=== PATIENT | male | born 1985 | race Caucasian/White ===

== ENCOUNTER 2019-03-12 13:56 | Emergency (ER) | payer OTHER ==
[2019-03-12 15:49] VITALS: BP 144/85
--- NOTE | 2019-03-12 16:03 | UC ---
General HPI - HPI Summary HPI Summary: swelling around L great toenail for 3-4days. hx same from infection on other foot. - History of Current Complaint Chief Complaint: UCLowerExtremity Stated Complaint: LEFT GREAT TOE COMPLAINT Time Seen by Provider: 03/12/19 15:55 Hx Obtained From: Patient Onset/Duration: Gradual Onset Pain Intensity: 4 Associated Signs & Symptoms: Negative: Fever - Allergy/Home Medications Allergies/Adverse Reactions: Allergies Allergy/AdvReac Type Severity Reaction Status Date / Time phenobarbital Allergy Rash Verified 03/12/19 15:42 Home Medications: Home Medications Albuterol HFA INHALER* [Ventolin HFA Inhaler*] 2 puff INH Q4H PRN 03/12/19 [ History Confirmed 03/12/19] Loratadine [Claritin] 10 mg PO DAILY 03/12/19 [History Confirmed 03/12/19] PMH/Surg Hx/FS Hx/Imm Hx Previously Healthy: Yes - Family History Known Family History: Positive: Non-Contributory - Social History Lives: With Family Alcohol Use: None Substance Use Type: None Smoking Status (MU): Never Smoked Tobacco Household Exposure Type: Cigarettes Review of Systems All Other Systems Reviewed And Are Negative: No Constitutional: Negative: Fever, Chills Musculoskeletal: Negative: Arthralgia, Decreased ROM Neurological: Negative: Weakness, Paresthesia, Numbness Physical Exam Triage Information Reviewed: Yes Appearance: Well-Appearing Vital Signs: Initial Vital Signs Temp 99.1 F 03/12/19 15:43 Pulse 98 03/12/19 15:43 Resp 15 03/12/19 15:43 BP 144/85 03/12/19 15:43 Pulse Ox 97 03/12/19 15:43 Vital Signs Reviewed: Yes Eyes: Positive: Conjunctiva Clear Neck: Positive: Supple Respiratory: Positive: No respiratory distress Cardiovascular: Positive: RRR Musculoskeletal: Positive: Other: - L foot: mild swelling around nail but not fluctuant. rest of foot unremarkable. s/v/m is intact. Neurological: Positive: Alert Psychological: Positive: Age Appropriate Behavior Skin Exam: Normal Course/Dx - Differential Dx - Multi-Symptom Differential Diagnoses: Other - c/w paronychia that would not benefit from I&D at this time. - Diagnoses Provider Diagnosis: Paronychia of great toe of left foot Discharge - Sign-Out/Discharge Documenting (check all that apply): Patient Departure All imaging exams completed and their final reports reviewed: No Studies - Discharge Plan Condition: Stable Disposition: HOME Prescriptions: Cephalexin CAP* [Keflex CAP*] 500 mg PO TID 10 Days #30 cap Patient Education Materials: Jeremy (ED) Referrals: Sonu Parker DPM [Doctor of Podiatric Medicine] - As Soon As Possible - Billing Disposition and Condition Condition: STABLE Disposition: Home
== END 2019-03-12 16:10 | disposition home or self-care (01) ==
LOC: UCCORT 13:56
DX: L03.032 Cellulitis of left toe (principal); Z88.8 Allergy status to other drugs, medicaments and biological substances
CPT/HCPCS: 99202; G0463

== ENCOUNTER 2019-05-29 10:41 | Emergency (ER) | payer OTHER ==
[2019-05-29 11:04] VITALS: BP 122/74
--- NOTE | 2019-05-29 11:23 | UC ---
Respiratory Complaint HPI - HPI Summary HPI Summary: cough x 10 days cough is dry , worse with deep breathing , better with rest and fluid + nasal congestion , pnd , no sore throat, no fever, no chills - History of Current Complaint Chief Complaint: UCGeneralIllness Stated Complaint: COUGH/SINUSES Time Seen by Provider: 05/29/19 11:06 Hx Obtained From: Patient Onset/Duration: Gradual Onset, Lasting Days - 10, Still Present Timing: Constant Severity Initially: Moderate Severity Currently: Moderate Pain Intensity: 0 Character: Cough: Nonproductive Aggravating Factors: Exertion, Deep Breaths Alleviating Factors: Nothing Associated Signs And Symptoms: Positive: Wheezing, URI, Nasal Congestion. Negative: Dyspnea, Fever, Chills - Allergies/Home Medications Allergies/Adverse Reactions: Allergies Allergy/AdvReac Type Severity Reaction Status Date / Time phenobarbital Allergy Rash Verified 05/29/19 11:04 Home Medications: Home Medications Ascorbic Acid TAB* [Vitamin C TAB*] 1 tab PO DAILY 05/29/19 [History Confirmed 05/29/19] Cholecalciferol TAB* [Vitamin D TAB*] 1 tab PO DAILY 05/29/19 [History Confirmed 05/29/19] Multivit-Minerals/Ferrous Fum [Multivitamin Liquid] 15 ml PO DAILY 05/29/19 [ History Confirmed 05/29/19] Phenylephrine/Dm/Acetaminop/GG [Mucinex [id number] Lq] 20 ml PO ONCE [History Confirmed 05/29/19] PMH/Surg Hx/FS Hx/Imm Hx Respiratory History: Asthma Neurological History: Seizures - Surgical History Surgical History: Yes Surgery Procedure, Year, and Place: L knee. L calf. bilateral ankles - Family History Known Family History: Positive: Non-Contributory Negative: Diabetes - Social History Alcohol Use: None Substance Use Type: None Smoking Status (MU): Never Smoked Tobacco Household Exposure Type: Cigarettes Review of Systems All Other Systems Reviewed And Are Negative: Yes Constitutional: Positive: Negative Skin: Positive: Negative Eyes: Positive: Negative ENT: Positive: Nasal Discharge Respiratory: Positive: Cough Is Patient Immunocompromised?: No Physical Exam Triage Information Reviewed: Yes Appearance: Well-Appearing, No Pain Distress, Well-Nourished Vital Signs: Initial Vital Signs Temp 97.5 F 05/29/19 10:59 Pulse 64 05/29/19 10:59 Resp 16 05/29/19 10:59 BP 122/74 05/29/19 10:59 Pulse Ox 99 05/29/19 10:59 Vital Signs Reviewed: Yes Eye Exam: Normal Eyes: Positive: Conjunctiva Clear ENT: Positive: Normal ENT inspection, Hearing grossly normal, Pharynx normal Neck exam: Normal Neck: Positive: Supple, Nontender, No Lymphadenopathy Respiratory: Positive: Chest non-tender, Lungs clear, Normal breath sounds Cardiovascular: Positive: RRR, No Murmur, Pulses Normal Skin Exam: Normal Respiratory Course/Dx - Differential Dx/Diagnosis Provider Diagnosis: Bronchitis Discharge ED - Sign-Out/Discharge Documenting (check all that apply): Patient Departure All imaging exams completed and their final reports reviewed: No Studies - Discharge Plan Condition: Stable Disposition: HOME Prescriptions: Benzonatate CAP* [Tessalon 100 MG CAP*] 100 mg PO TID PRN #15 cap PRN Reason: Cough Patient Education Materials: Acute Bronchitis (ED) Forms: *Work Release Referrals: Jeff Cerda MD [Primary Care Provider] - - Billing Disposition and Condition Condition: STABLE Disposition: Home
== END 2019-05-29 11:26 | disposition home or self-care (01) ==
LOC: UCCORT 10:41
DX: J40 Bronchitis, not specified as acute or chronic (principal); Z88.8 Allergy status to other drugs, medicaments and biological substances
CPT/HCPCS: 99212; G0463